=== PATIENT | female | born 1955 | race Caucasian/White ===

== ENCOUNTER → 2017-03-16 | Outpatient (CLI) | payer BC ==
[2017-03-16 07:03] LABS: HEMOGLOBIN A1C 7.23 % (4.2-6.0)
[2017-03-16 07:24] LABS: CHOL/HDL RATIO 3.74 RATIO (0-4.0); LDL CHOLESTEROL,CALCULATED 101.8 mg/dL
== END ==
LOC: LAB 06:43
PROVIDERS: ATTEND Family Medicine
DX: E11.9 Type 2 diabetes mellitus without complications (principal); E78.5 Hyperlipidemia, unspecified; I10 Essential (primary) hypertension
CPT/HCPCS: 36415; 80061; 83036

== ENCOUNTER → 2017-05-12 | Outpatient (CLI) | payer BC ==
--- NOTE | 2017-05-12 11:55 | DI ---
XR SHOULDER MIN 2VW,05/12/2017 10:01 AM: Clinical History: Acute pain of the right shoulder. Previous Exam: None at this facility. Findings: 3 views of the right shoulder are obtained, and demonstrate anatomic alignment without fractures. The right lung and chest wall are unremarkable. Impression: No fractures.
== END ==
LOC: MOB RAD 10:06
PROVIDERS: ATTEND Physician Assistant
DX: M25.511 Pain in right shoulder (principal); W18.09XA Striking against other object with subsequent fall, initial encounter; Y93.89 Activity, other specified
CPT/HCPCS: 73030